=== PATIENT | female | born 1980 | race Caucasian/White ===

== ENCOUNTER 2020-10-30 17:11 | Emergency (ER) | payer OTHER ==
[2020-10-30 17:48] LABS: HEMOGLOBIN 14.4 gm/dl (12.3-15.3); RED BLOOD COUNT 4.44 M/UL (4.00-5.10); WHITE BLOOD COUNT 4.6 K/UL (4.5-11.0)
[2020-10-30] MEDS ORDERED: ZOFRAN4 MG PO (20:45)
== END 2020-10-30 21:02 | disposition home or self-care (01) ==
LOC: ER1 17:11
PROVIDERS: Nurse Practitioner
DX: R11.10 Vomiting, unspecified (principal); R79.89 Other specified abnormal findings of blood chemistry; Z20.822 Contact with and (suspected) exposure to COVID-19
CPT/HCPCS: 71045; 80053; 83605; 83690; 84703; 85025; 99285; J2405; U0002